=== PATIENT | female | born 1965 | race Caucasian/White ===

== ENCOUNTER → 2017-01-09 | Outpatient (CLI) | payer SELFPAY ==
[~2017-01-09] MED LIST: APETEX LIQ790 MG/15 PO; B COMPLEX1 EACH PO; MULTI VITAMIN1 EACH PO; OMEPRAZOLE40 M1 PO; PROZAC40 MG PO
== END | disposition home or self-care (01) ==
LOC: CBAR 09:21
DX: Z01.812 Encounter for preprocedural laboratory examination (principal); E66.3 Overweight
CPT/HCPCS: 36415; 86677

== ENCOUNTER → 2017-01-17 | Day surgery (SDC) | payer SELFPAY ==
--- NOTE | ~2017-01-17 | OR ---
Unit #: [id number] #: [id number] Patient: EMELY THOMAS [id number] [address] [place], [place] [address] [id number] O MR#: [id number] NAME: EMELY THOMAS ROOM: Date of Procedure: 01/17/2017 Admission Date: 01/17/2017 Surgeon: Jb Lin M.D. : 1965 Attending Physician: Jb Lin M.D. Primary Care Physician: Primary Care Physician No OPERATIVE REPORT PREOPERATIVE DIAGNOSIS Chronic obesity. POSTOPERATIVE DIAGNOSIS Chronic obesity. PROCEDURE PERFORMED Placement of intragastric balloon. ANESTHESIA IV sedation. COMPLICATIONS None. TOTAL OPERATIVE TIME 13 minutes. Serial number of balloon placement [id number]. Insufflation volume 640 mL. INDICATIONS FOR PROCEDURE The patient is a 51-year-old lady, who presents with chronic obesity. She is interested in intragastric balloon placement. She has gone through the program and taken place in the educational seminar. All questions were answered. DESCRIPTION OF PROCEDURE The patient was taken to the operative theater and placed in the left lateral position. IV sedation was initiated. EGD scope was passed under direct vision into the esophagus. Esophagus was grossly normal as was the stomach and duodenum. An intragastric balloon was then placed into the retropharynx and then under direct vision navigated down her esophagus into the gastric cardia. This was then insufflated with saline to a total of 640 mL. We then removed the insufflation catheter to leave the balloon up in the gastric cardia. This was confirmed with endoscopy going past the balloon on retroflexion. The patient tolerated the procedure without complications. Dictated by... Jb Lin M.D. Unit #: [id number] #: [id number] Patient: EMELY THOMAS JNO/modl TD: 01/19/2017 14:19 JOB #: [id number] OPERATIVE REPORT Page 1 of 1 X Jb Lin MD X PROCEDURE OPERATIVE NOTE
== END | disposition home or self-care (01) ==
LOC: COPS 10:45
DX: E66.9 Obesity, unspecified (principal); F41.9 Anxiety disorder, unspecified; K21.9 Gastro-esophageal reflux disease without esophagitis; E66.3 Overweight; J30.9 Allergic rhinitis, unspecified; Z80.3 Family history of malignant neoplasm of breast; Z88.0 Allergy status to penicillin; Z98.890 Other specified postprocedural states; Z90.710 Acquired absence of both cervix and uterus; Z87.891 Personal history of nicotine dependence; Z79.899 Other long term (current) drug therapy
CPT/HCPCS: J2250